=== PATIENT | female | born 1995 | race Caucasian/White ===

== ENCOUNTER 2025-01-04 10:30 | Inpatient (IN) | payer OTHER ==
[~2025-01-04] VITALS: Ht 160 cm; Wt 111.1 kg
[2025-01-04 12:42] VITALS: BP 124/77
[2025-01-08] MEDS ORDERED: CEFAZOLIN SODIUM 1,000 MG VIAL ONE (08:46)
[2025-01-08] MEDS ORDERED: SUGAMMADEX SODIUM 200 MG/2 ML VIAL IV ONE (13:39)
[2025-01-08] MEDS ORDERED: CEFOXITIN SODIUM 1,000 MG VIAL IV SCH (13:51)
[2025-01-08] MEDS ORDERED: MORPHINE SULFATE 4 MG/ML CARTRIDGE IV SCH (13:53)
[2025-01-08] MEDS ORDERED: CEFOXITIN SODIUM 2,000 MG VIAL IV ONE (14:26)
[2025-01-08] MEDS ORDERED: MORPHINE SULFATE 4 MG/ML VIAL IV ONE (14:30)
[2025-01-08] MEDS ORDERED: PROMETHAZINE HCL 25 MG/ML AMPUL IV SCH (16:00)
[2025-01-08 17:05] LABS: BASO % 0.2 % (0.1-1.2); EOS # 0.09 (0.04-0.54); EOS % 0.5 % (0.7-7.0); HEMATOCRIT 37.5 % (34.1-44.9); LYMPH # 1.76 (1.18-3.74); LYMPH % 9.8 % (19.3-53.1); MEAN CORPUSCULAR HEMOGLOBIN 26.7 pg (25.6-32.2); MONO # 0.84 (0.24-0.82); MONO % 4.7 % (4.7-12.5); NEUT # 15.12 (1.56-6.13); NEUT % 84.4 % (34.0-71.1); PLATELET COUNT 330 K/uL (163-369); RED CELL DISTRIBUTION WIDTH 13.5 % (11.6-14.4)
[2025-01-08 20:14] VITALS: BP 145/92
[2025-01-08] MEDS ORDERED: KETOROLAC TROMETHAMINE 60 MG VIAL IM STA (21:32)
[2025-01-08 22:42] VITALS: BP 125/64
[2025-01-09] VITALS: BP 143/79
[2025-01-09] MEDS ORDERED: IBUprofen 800 MG TABLET PO SCH (02:00)
[2025-01-09 03:53] LABS: BASO % 0.2 % (0.1-1.2); EOS # 0.09 (0.04-0.54); EOS % 0.6 % (0.7-7.0); HEMATOCRIT 35.3 % (34.1-44.9); HEMOGLOBIN 11.3 g/dL (11.2-15.7); LYMPH # 2.97 (1.18-3.74); LYMPH % 18.4 % (19.3-53.1); MEAN CORPUSCULAR HEMOGLOBIN 26.5 pg (25.6-32.2); MONO # 0.94 (0.24-0.82); MONO % 5.8 % (4.7-12.5); NEUT # 12.05 (1.56-6.13); NEUT % 74.7 % (34.0-71.1); PLATELET COUNT 318 K/uL (163-369); RED BLOOD COUNT 4.26 M/uL (3.93-5.22); RED CELL DISTRIBUTION WIDTH 13.3 % (11.6-14.4)
[2025-01-09 05:00] VITALS: BP 101/65
[2025-01-09] MEDS ORDERED: POLYETHYLENE GLYCOL 3350 17 GM BLIST.PACK PO SCH (05:00)
[2025-01-09 08:00] VITALS: BP 107/70
[2025-01-09] MEDS ORDERED: KETOROLAC TROMETHAMINE 30 MG VIAL IV NR (08:30)
[2025-01-09] MEDS ORDERED: GUAIFENESIN 600 MG TABLET.SA PO SCH (09:00)
[2025-01-09 16:17] VITALS: BP 107/69
[2025-01-09] MEDS ORDERED: AMOXICILLIN/POTASSIUM CLAV 875-125 TABLET PO SCH (21:00)
[2025-01-10] VITALS: BP 98/65
[2025-01-10 05:00] VITALS: BP 122/74
[2025-01-10] MEDS ORDERED: MUCINEX600 MG PO (07:01)
[2025-01-10] MEDS ORDERED: AMOX-CLAV 875-1 EACH PO (07:01)
[2025-01-10] MEDS ORDERED: IBUPROFEN800 MG PO (07:01)
[2025-01-10] MEDS ORDERED: POLY119PG PO (07:02)
[2025-01-10 08:32] VITALS: BP 125/76
== END 2025-01-10 09:14 | disposition home or self-care (01) | DRG 743 ==
LOC: O/R 01-08 08:20 → SURH 01-08 10:30 → OB/GYN 01-08 15:43
PROVIDERS: ADMIT Obstetrics & Gynecology; ATTEND Obstetrics & Gynecology
PROC: 0UB00ZZ Excision of Right Ovary, Open Approach (ICD-10-PCS; principal; 2025-01-08 12:30)
DX: D27.0 Benign neoplasm of right ovary (principal)